=== PATIENT | male | born 1970 | race Caucasian/White ===

== ENCOUNTER 2016-12-05 00:34 | Emergency (ER) | payer OTHER ==
[2016-12-05] MEDS ORDERED: CLINDAMYCIN 600MG/4ML VIAL 600 MG in 0.9 % SODIUM CHLORIDE 100ML 100 ML IV ONE (00:35)
[2016-12-05] MEDS ORDERED: CLINDAMYCIN 150 MG CAP PO ONE (00:38)
[2016-12-05] MEDS ORDERED: KETOROLAC 30 MG/ML VIAL IVP ONE (00:39)
[2016-12-05] MEDS ORDERED: Diph,Pert(Acell),Tet Vac 0.5 ML SYR IM ONE (00:40)
--- NOTE | 2016-12-05 00:41 | Emergency Department Record ---
History of Present Illness - General Stated Complaint: INFECTION Time Seen by Provider: 12/05/16 00:35 Source: Patient Mode of Arrival: Ambulatory Limitations: No limitations - History of Present Illness Initial Comments: 46 yo male presents to ED with a CC of swelling and pain to the left index finger last night while washing dishes, applied band-aid and ointment to the area following the injury. Patient reports increased swelling and pain for the past 12 hours. Patient denies fevers, chills, or recent illness. Patient denies health problems other than HTN. MD Complaint: Injury to:: Left, Finger Onset/Timin Other Extremity Injury: Fingers: Left Other Injuries: None Handedness: Right Place: Home Improves With: None Worsens With: Movement of extremity Context: Injury Associated Symptoms: Denies other symptoms Treatments Prior to Arrival: Bandage - Related Data Home Medications Medication Instructions Recorded Confirmed Last Taken Hydrochlorothiazide 12.5 mg PO DAILY 08/17/14 08/17/14 08/17/14 [Hydrochlorothiazide] Losartan Potassium [Losartan 50 mg PO DAILY 08/17/14 08/17/14 08/17/14 Potassium] Previous Rx's Medication Instructions Recorded Ibuprofen [Motrin] 600 mg PO Q6H #30 tablet 08/17/14 Allergies Allergy/AdvReac Type Severity Reaction Status Date / Time No Known Drug Allergies Allergy Verified 08/17/14 21:37 Review of Systems Constitutional: Denies: Chills, Fever, Malaise Eyes: Denies: Eye discharge, Eye pain ENT: Denies: Congestion, Ear pain, Epistaxis Respiratory: Denies: Cough, Dyspnea Cardiovascular: Denies: Chest pain, Dyspnea on exertion Endocrine: Denies: Fatigue, Heat or cold intolerance Gastrointestinal: Denies: Abdominal pain, Nausea, Vomiting Genitourinary: Denies: Incontinence, Retention Musculoskeletal: Reports: Joint swelling, Myalgia. Denies: Arthralgia, Back pain, Gout Skin: Reports: Change in color. Denies: Bruising, Change in hair/nails Neurological: Denies: Abnormal gait, Confusion, Headache, Seizure Psychiatric: Denies: Anxiety Hematological/Lymphatic: Denies: Anemia, Blood Clots Past Medical History - SOCIAL HISTORY Smoking Status: Never smoker - RESPIRATORY Hx Respiratory Disorders: No - CARDIOVASCULAR Hx Cardio Disorders: Yes Hx Hypertension: Yes - NEURO Hx Neuro Disorders: No - GI Hx GI Disorders: No - Hx Genitourinary Disorders: No - ENDOCRINE Hx Endocrine Disorders: No - MUSCULOSKELETAL Hx Musculoskeletal Disorders: No - PSYCH Hx Psych Problems: No - HEMATOLOGY/ONCOLOGY Hx Hematology/Oncology Disorders: No Family Medical History Hx Heart Disease: Father Hx HTN: Mother Physical Exam - General General Appearance: Alert, Oriented x3, Cooperative, No acute distress Limitations: No limitations - Head Head exam: Atraumatic, Normocephalic, Normal inspection Head exam detail: negative: Abrasion, Contusion, Guzman's sign, General tenderness, Hematoma, Laceration - Eye Eye exam: Normal appearance. negative: Conjunctival injection, Periorbital swelling, Periorbital tenderness, Scleral icterus - ENT Ear exam: negative: Auricular hematoma, Auricular trauma Nasal Exam: negative: Active bleeding, Discharge, Dried blood, Foreign body Mouth exam: negative: Drooling, Laceration, Muffled voice, Tongue elevation - Neck Neck exam: Normal inspection. negative: Meningismus, Tenderness - GI/Abdominal GI/Abdominal exam: negative: Rebound, Rigid, Tenderness - Rectal Rectal exam: Deferred - exam: Deferred - Extremities Extremities exam: Tenderness, Other (TTP over the left index finger with associated STS, pain with finger extension, no evidence for tendon injury on examination). negative: Calf tenderness, Pedal edema - Neurological Neurological exam: Alert, Normal gait, Oriented X3 - Psychiatric Psychiatric exam: Normal affect, Normal mood - Skin Skin exam: Erythema Disposition Disposition: Discharge Clinical Impression: Finger infection Disposition: Home, Self-Care Condition: (2) Stable Instructions: Tenosynovitis (ED) Additional Instructions: Return to ED if your symptoms or if you have any concerns. Clindamycin as directed. Follow-up with your family doctor in 1-3 days as directed. Time of Disposition: 00:42
== END 2016-12-05 01:16 | disposition home or self-care (01) ==
LOC: ER 00:34
DX: S61.217A Laceration without foreign body of left little finger without damage to nail, initial encounter (principal); L08.9 Local infection of the skin and subcutaneous tissue, unspecified; W25.XXXA Contact with sharp glass, initial encounter; I10 Essential (primary) hypertension
CPT/HCPCS: 90715; 96365; 96372; 99283; J1885

== ENCOUNTER 2018-07-31 10:55 | Emergency (ER) | payer SELFPAY ==
[2018-07-31] MEDS ORDERED: KETOROLAC 30 MG/ML VIAL IM ONE (11:02)
--- NOTE | 2018-07-31 11:05 | Emergency Department Record ---
History of Present Illness - General Chief Complaint: Fall Injury Stated Complaint: FALL Time Seen by Provider: 07/31/18 10:55 Source: Patient Mode of Arrival: EMS Limitations: No limitations - History of Present Illness Initial Comments: The patient was walking and slipped on the ice and injured his L knee. He slipped and felt pain and then went down to the ground. The patient was not able to ambulate after the fall due to the injury. He denies any L foot numbness or tingling. MD Complaint: Fall Onset/Timin -: Minutes(s) When Fall Occurred: Just prior to arrival Fall Witnessed: No Place Fall Occurred: Work, Street Loss of Consciousness: None Prolonged Down Time?: No Symptoms Prior to Fall: None Severity: Moderate Severity scale (1-10): 6 Quality: Sharp Context: Tripped/slipped Associated Symptoms: Denies - Related Data Allergies Allergy/AdvReac Type Severity Reaction Status Date / Time No Known Drug Allergies Allergy Verified 08/17/14 21:37 Travel Screening - Travel/Exposure Within Last 30 Days Have you traveled within the last 30 days?: Yes Location Detail:: [place] - Travel/Exposure Within Last Year Have you traveled outside the [place] in the last year?: Yes Location Detail:: [place] - Additonal Travel Details Have you been exposed to anyone with a communicable illness?: No - Travel Symptoms Symptom Screening: None Review of Systems Constitutional: Denies: Chills, Fever Eyes: Denies: Eye discharge ENT: Denies: Congestion Respiratory: Denies: Cough, Dyspnea Past Medical History - SOCIAL HISTORY Smoking Status: Never smoker - RESPIRATORY Hx Respiratory Disorders: No - CARDIOVASCULAR Hx Cardio Disorders: Yes Hx Hypertension: Yes - NEURO Hx Neuro Disorders: No - GI Hx GI Disorders: No - Hx Genitourinary Disorders: No - ENDOCRINE Hx Endocrine Disorders: No - MUSCULOSKELETAL Hx Musculoskeletal Disorders: No - PSYCH Hx Psych Problems: No - HEMATOLOGY/ONCOLOGY Hx Hematology/Oncology Disorders: No Family Medical History Any Significant Family History?: Yes Hx Heart Disease: Father Hx HTN: Mother Physical Exam - General General Appearance: Alert, Cooperative, No acute distress - Head Head exam: Atraumatic - Eye Eye exam: Normal appearance - Extremities Extremities exam: Joint swelling (Mild L knee.), Normal capillary refill, Tenderness (There is diffuse anterior L knee tenderness.), Other (The L lower leg is NVI with normal pulses. There is no anterior drawer but the L knee does open up significantly with valgus stressing with tend over the L MCL ligament.) . negative: Normal inspection (There is mild L knee swelling and a joint effusion.), Full ROM (There is very decreased flexion due to pain.) - Neurological Neurological exam: Abnormal gait, Alert. negative: Motor sensory deficit, Normal gait Course Vital Signs 07/31/18 10:56 Temperature 98.5 F Pulse Rate 71 Respiratory 20 Rate Blood Pressure 146/91 Pulse Ox 98 - Reevaluation(s) Reevaluation #1: I did discuss the neg xrays and the need for F/U with an orthopedic surgeon next week. 07/31/18 11:51 Medical Decision Making - Data Complexity MDM Data: X-Ray Ordered and/or Reviewed - Radiology Data Radiology results: Report reviewed (L knee: Neg for fx or dislocation. Small joint effusion.) Disposition Disposition: Discharge Clinical Impression: Left knee sprain Qualifiers: Encounter type: initial encounter Involved ligament of knee: unspecified ligament Qualified Code(s): S83.92XA - Sprain of unspecified site of left knee, initial encounter Disposition: Home, Self-Care Condition: (2) Stable Instructions: Knee Sprain (ED) Additional Instructions: Please ice and elevate the L knee when possible and do not walk on the L leg. Use the Immobilizer during the day and use crutches for walking. Take Tylenol or Motrin for pain and please see your Occupational Health doctor this week for further evaluation and an Orthopedic surgeon referral. Forms: Patient Portal Access Time of Disposition: 11:53 Quality - Quality Measures Quality Measures: N/A - Blood Pressure Screening View Details: Yes Does Patient Have Any of the Following: Active Dx of HTN Blood Pressure Classification: Hypertensive Reading Systolic Measurement: 154 Diastolic Measurement: 100 Screening for High Blood Pressure: Patient Exclusion, Hx of HTN [[id number]]
--- NOTE | 2018-08-02 08:42 | RADIOLOGY REPORT ---
EXAM: LEFT KNEE, FOUR VIEWS HISTORY: SLIPPED BACKWARDS ON ICE. INFERIOR LEFT KNEE PAIN. NO PRIORS. TECHNIQUE: Four views of the left knee were obtained. FINDINGS: There is a small joint effusion. There appears to be a well corticated calcification along the medial aspect of the patella measuring approximately 2 x 0.6 cm, probably sequela of remote trauma though correlate with point tenderness. Minimal degenerative change medial compartment. No clearly acute osseous abnormality. IMPRESSION: NO CONCLUSIVE ACUTE OSSEOUS ABNORMALITY LEFT KNEE. PROBABLE SEQUELA OF REMOTE TRAUMA MEDIAL PATELLA. MILD DEGENERATIVE CHANGE MEDIAL COMPARTMENT. JOB NUMBER: [id number] [facility]
== END 2018-07-31 12:24 | disposition home or self-care (01) ==
LOC: ER 10:55
DX: S83.92XA Sprain of unspecified site of left knee, initial encounter (principal); W00.0XXA Fall on same level due to ice and snow, initial encounter; Y92.410 Unspecified street and highway as the place of occurrence of the external cause; Y99.0 Civilian activity done for income or pay; I10 Essential (primary) hypertension
CPT/HCPCS: 96372; 99283; 99284; J1885